=== PATIENT | female | born 2000 | race Caucasian/White ===

== ENCOUNTER 2019-03-11 12:05 | Emergency (ER) | payer OTHER ==
[~2019-03-11] VITALS: Ht 152.4 cm; Wt 48.5 kg
[2019-03-11 12:12] VITALS: Ht 152.4 cm; Wt 48.5 kg
[2019-03-11 13:21] LABS: BASOPHIL % 0.5 % (0-2); PLATELET COUNT 207 x10^3mcL (130-400); RED CELL DISTRIBUTION WIDTH 12.5 % (11.5-14.5)
[2019-03-11 13:53] LABS: T3 TOTAL 1.09 ng/mL
[2019-03-11 13:55] LABS: ALBUMIN 3.5 g/dL (3.4-5.0); ALKALINE PHOSPHATASE 58 U/L (46-116); ALT/SGPT 23 U/L (14-59); AST/SGOT 13 U/L (15-37); BILIRUBIN TOTAL 0.5 mg/dL (0.20-1.00); CARBON DIOXIDE 25.9 mmol/L (21-32); CHLORIDE SERUM 109 mmol/L (98-107); CREATININE SERUM 0.7 mg/dL (0.6-1.0); GFR1 > 60 mL/min; GLUCOSE SERUM 104 mg/dL (74-106); MAGNESIUM 1.7 mg/dL (1.8-2.4); POTASSIUM SERUM 3.7 mmol/L (3.5-5.1); SODIUM SERUM 141 mmol/L (136-145); TOTAL PROTEIN, SERUM 6.5 g/dL (6.4-8.2)
[2019-03-11 14:01] LABS: FREE T4 1.08 ng/dL (0.76-1.46); FREE THYROXINE INDEX 2.2 ug/dL (1.4-4.5); T4(THYROXINE) 6.5 ug/dL (4.7-13.3)
[2019-03-11 14:23] LABS: AMPHETAMINE QUAL UR NONE DETECTED (See below)
[2019-03-11 16:07] VITALS: BP 104/66
== END 2019-03-11 16:07 | disposition home or self-care (01) ==
LOC: ED 12:05
PROVIDERS: Emergency Medicine
DX: R55 Syncope and collapse (principal); R25.1 Tremor, unspecified
CPT/HCPCS: 84439; Q0092

== ENCOUNTER → 2019-03-11 | Outpatient (CLI) | payer OTHER ==
[2019-03-11 11:59] LABS: microscopic required? NO
[2019-03-11 12:05] LABS: UA SPECIFIC GRAVITY 1.015 (1.005-1.035); urine erythrocyte NEGATIVE (NEGATIVE)
[2019-03-11 12:08] LABS: BASOPHIL % 0.3 % (0-2); PLATELET COUNT 278 x10^3mcL (130-400); RED CELL DISTRIBUTION WIDTH 12.5 % (11.5-14.5)
[2019-03-11 12:44] LABS: CHLORIDE SERUM 104 mmol/L (98-107); POTASSIUM SERUM 3.8 mmol/L (3.5-5.1); SODIUM SERUM 141 mmol/L (136-145)
[2019-03-11 12:45] LABS: ALBUMIN 4.3 g/dL (3.4-5.0); ALKALINE PHOSPHATASE 69 U/L (46-116); ALT/SGPT 24 U/L (14-59); AST/SGOT 12 U/L (15-37); BILIRUBIN TOTAL 0.6 mg/dL (0.20-1.00); CALCIUM 9.4 mg/dL (8.5-10.1); CARBON DIOXIDE 28.6 mmol/L (21-32); CHOLESTEROL 194 mg/dL (<200); CHOLESTEROL/HDL RATIO 2.9; CREATININE SERUM 0.8 mg/dL (0.6-1.0); GFR1 > 60 mL/min; GLUCOSE SERUM 95 mg/dL (74-106); HDL CHOLESTEROL 66 mg/dL (40-60); TRIGLYCERIDES 63 mg/dL (<150)
== END | disposition home or self-care (01) ==
LOC: LB 11:37
DX: Z00.00 Encounter for general adult medical examination without abnormal findings (principal)

== ENCOUNTER 2019-05-25 12:43 | Emergency (ER) | payer OTHER ==
[~2019-05-25] VITALS: Ht 149.9 cm; Wt 48.3 kg
[2019-05-25 12:50] VITALS: Ht 149.9 cm; Wt 48.3 kg
[2019-05-25 14:15] VITALS: BP 110/74
== END 2019-05-25 14:15 | disposition home or self-care (01) ==
LOC: ED 12:43
DX: J40 Bronchitis, not specified as acute or chronic (principal); J03.90 Acute tonsillitis, unspecified

== ENCOUNTER 2020-02-13 20:25 | Emergency (ER) | payer OTHER ==
[~2020-02-13] VITALS: Ht 157.5 cm; Wt 49.8 kg
[2020-02-13 20:36] VITALS: Ht 157.5 cm; Wt 49.8 kg
[2020-02-13 21:49] LABS: BASOPHIL % 0.2 % (0-2); RED CELL DISTRIBUTION WIDTH 12.7 % (11.5-14.5)
[2020-02-13 21:50] LABS: PLATELET COUNT 406 x10^3mcL (130-400)
[2020-02-13 22:10] LABS: ALBUMIN 3.8 g/dL (3.4-5.0); ALKALINE PHOSPHATASE 83 U/L (46-116); ALT/SGPT 27 U/L (14-59); AST/SGOT 15 U/L (15-37); BILIRUBIN TOTAL 0.4 mg/dL (0.20-1.00); CARBON DIOXIDE 25.1 mmol/L (21-32); CHLORIDE SERUM 101 mmol/L (98-107); CREATININE SERUM 0.9 mg/dL (0.6-1.0); GFR1 > 60 mL/min; GLUCOSE SERUM 118 mg/dL (74-106); LIPASE 138 IU/L (73-393); POTASSIUM SERUM 4.2 mmol/L (3.5-5.1); SODIUM SERUM 138 mmol/L (136-145)
[2020-02-13 22:13] LABS: CALCIUM 9.9 mg/dL (8.5-10.1); TOTAL PROTEIN, SERUM 8.4 g/dL (6.4-8.2)
[2020-02-14 00:43] VITALS: BP 106/69
== END 2020-02-14 00:43 | disposition home or self-care (01) ==
LOC: ED 20:25
PROVIDERS: Emergency Medicine
DX: K52.9 Noninfective gastroenteritis and colitis, unspecified (principal)
CPT/HCPCS: 36415